=== PATIENT | female | born 1960 | race Caucasian/White ===

== ENCOUNTER → 2016-05-01 | Day surgery (SDC) | payer OTHER ==
[~2016-05-01] VITALS: Ht 167.6 cm; Wt 44.4 kg
[~2016-05-01] MED LIST: AMOX250S2 PO; AMPICILLIN-SULBACTAM INJ 3 GM VIAL ONE; DEXAMETHASONE SOD PHOS 4 MG/ML VIAL ONE; FAMOTIDINE 20 MG/2 ML VIAL ONE; HYDR1SOL3 PO; LACTATED RINGER'S 1000 ML INJ 1,000 ML ONE; MAGICADU2 SWISH-SWAL; MIDAZOLAM HCL 2 MG/2 ML VIAL ONE; OMEP20CA2 PO; PROPOFOL 200 MG/20 ML AMP IV ONE; SODIUM CHLORIDE 0.9% INJ 100 ML ONE
[2016-05-01 10:58] VITALS: BP 110/62; PULSE 70; RESP 24; TEMP 98.3; O2SAT 100
[2016-05-01 11:50] LABS: AUTOMATED NEUTROPHIL # 3.5 TH/MM3 (1.8-7.7); BASOPHIL # 0.1 TH/MM3 (0-0.2); BASOPHIL % 1.2 % (0.0-2.0); EOSINOPHIL # 0.3 TH/MM3 (0-0.4); EOSINOPHIL % 4.9 % (0.0-4.0); HEMATOCRIT 39.6 % (35.0-46.0); HEMO FLAGS DIFF FINAL; LYMPH % 15.5 % (9.0-44.0); LYMPHOCYTE # 0.8 TH/MM3 (1.0-4.8); MEAN CELL VOLUME 98.9 FL (80.0-100.0); MEAN CORPUSCULAR HEMOGLOBIN 33.8 PG (27.0-34.0); MEAN CORPUSCULAR HGB CONC 34.2 % (32.0-36.0); NEUT % 66.4 % (16.0-70.0); PLATELET COUNT 316 TH/MM3 (150-450); RED BLOOD COUNT 4.01 MIL/MM3 (4.00-5.30); RED CELL DISTRIBUTION WIDTH 12.8 % (11.6-17.2); WHITE BLOOD COUNT 5.3 TH/MM3 (4.0-11.0)
[2016-05-01 13:35] VITALS: TEMP 98.6
[2016-05-01 14:00] VITALS: BP 119/79; PULSE 78; RESP 15; O2SAT 99
--- NOTE | 2016-06-04 07:59 | MP ---
cc: MARLI MESSINA M.D. DATE OF SURGERY: 05/01/[address] 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 OPERATION PERFORMED 1. Direct laryngoscopy with biopsy. 2. Biopsies posterior one-third of tongue in three separate locations. INDICATIONS The indications are documented in the history and physical. DESCRIPTION OF OPERATION The patient was taken to OR #2 and placed in the supine position. Following induction of general anesthesia and intubation a shoulder roll and a Carlos head drape were put in place. A dental guard was placed and using the anterior commissure scope the hypopharynx and larynx were brought into view. Biopsies were obtained from the lingual surface of the epiglottis and then from three locations in the base of the tongue, right midline and left. These were all passed off the field as specimens and separately labeled for examination. The scope was then removed and the procedure was terminated. The patient was reversed from anesthesia and taken to Recovery in good condition. There were no complications. Blood loss less than 20 mL. MD DARREN Jesus/KALEN /7:44 AM /7:55 AM
== END | disposition home or self-care (01) ==
LOC: PHSDC 09:24
PROVIDERS: ATTEND Otolaryngology
DX: C01 Malignant neoplasm of base of tongue (principal); L11.9 Acantholytic disorder, unspecified; R49.0 Dysphonia; R13.19 Other dysphagia
CPT/HCPCS: 00320; 31535; 36415; 85025; 88305; J0295; J1100; J2250; J3010; J7120

== ENCOUNTER → 2016-07-31 | Day surgery (SDC) | payer OTHER ==
[~2016-07-31] VITALS: Ht 167.6 cm; Wt 48.5 kg
[~2016-07-31] MED LIST changes: -DEXAMETHASONE SOD PHOS 4 MG/ML VIAL ONE; -FAMOTIDINE 20 MG/2 ML VIAL ONE; -MIDAZOLAM HCL 2 MG/2 ML VIAL ONE
[2016-07-31 09:50] VITALS: BP 106/63; PULSE 77; RESP 16; TEMP 98.1; O2SAT 99
[2016-07-31 12:13] VITALS: PULSE 80
[2016-07-31 13:15] VITALS: BP 120/82; PULSE 83; RESP 16; TEMP 98; O2SAT 99
--- NOTE | 2016-07-31 18:20 | EKG ---
Date Performed: 07/31/2016 Time Performed: 10:41:58 PTAGE: 56 years EKG: Sinus rhythm SEPTAL MYOCARDIAL INFARCTION ABNORMAL ECG NO SIGNIFICANT CHANGE FROM PRIOR ELECTROCARDIOGRAM. PREVIOUS TRACING : 05/24/2015 10.01 DOCTOR: Juancarlos Ruvalcaba Interpretating Date/Time 07/31/2016 18:19:20
--- NOTE | 2016-08-01 06:35 | MP ---
cc: MARLI MESSINA M.D. DATE OF OPERATION July 31, [address] Marli Messina PREOPERATIVE DIAGNOSES 1. Squamous cell carcinoma of the larynx. 2. 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 POSTOPERATIVE DIAGNOSES 1. Squamous cell carcinoma of the larynx. 2. 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 OPERATION PERFORMED 1. Direct laryngoscopy with biopsy. 2. Biopsy right base of tongue. 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 A recent PET scan showed recurrence of hyperactivity in both of these areas. DESCRIPTION OF OPERATION The patient was taken to OR #2 and placed in the supine position. Following induction of general anesthesia and intubation, a shoulder roll was placed in a dental guard was put in place. Using anterior commissure scope, hypopharynx and larynx were brought into view. There was marked inflammation and granulation tissue in the interarytenoid area at the site that was identified in the posterior glottis as hyperactive on PET/CT scan. Two biopsies were obtained from this area and they were passed off the field for histological examination. The scope was then removed and a Ross mouth gag was then put in place. Palpation of right base of tongue showed there to be a suspicious area of exophytic mass on the right posterolateral tongue border. This was biopsied in two locations which were passed off the field for histological examination. The mouth gag was then removed and procedure was terminated. The patient was reversed from anesthesia and taken to Recovery in good condition. There were no complications. Blood loss less than 10 mL. MD DARREN Jesus/OSMANY /2:14 PM /6:29 AM
== END | disposition home or self-care (01) ==
LOC: PHSDC 09:21
PROVIDERS: ATTEND Otolaryngology
DX: C01 Malignant neoplasm of base of tongue (principal); Z01.810 Encounter for preprocedural cardiovascular examination
CPT/HCPCS: 00320; 31535; 88305; 93005; J0295; J3010; J7120